=== PATIENT | male | born 1950 | race Caucasian/White ===

== ENCOUNTER 2021-06-26 17:49 | Inpatient (IN) | payer OTHER ==
[~2021-06-26] VITALS: Ht 180.3 cm; Wt 54.5 kg
[2021-06-26] MEDS ORDERED: REMERON15 M7 PO (19:49)
[2021-06-26] MEDS ORDERED: NEURONTIN300 MG PO (19:49)
[2021-06-26] MEDS ORDERED: HYDROCODONE-AC1 EA16 PO (19:50)
[2021-06-26] MEDS ORDERED: Vitamin D1000 UNI1 PO (19:50)
[2021-06-26] MEDS ORDERED: DOCU100 PO (19:50)
[2021-06-26] MEDS ORDERED: Hair, Skin & N1 EACH PO (19:50)
[2021-06-26] MEDS ORDERED: IBUP400 PO (19:50)
[2021-06-26 19:54] LABS: Hematocrit 43.6 % (37.0-53.0); Mean Corpuscular HGB 31.3 pg (26.0-34.0); Mean Corpuscular HGB Conc 34.4 g/dL (31.5-36.5); Mean Corpuscular Volume 91 fL (80-100); Platelet Count 522 K/mm3 (150-400); RDW Standard Deviation 43.6 fL (35.1-46.3)
[2021-06-26 20:06] LABS: Alanine Aminotransfer (ALT/SGP 39 U/L (12-78); Albumin, Blood 2.3 g/dL (3.4-5.0); Albumin/Globulin Ratio 0.6 (0.8-1.8); Alk Phos 129 U/L (50-136); Anion Gap 9 mmol/L (6-16); Aspartate Aminotrans (AST/SGOT 21 U/L (12-37); Bilirubin, Total 0.4 mg/dL (0.1-1.0); Blood Urea Nitrogen 31 mg/dL (8-24); Bun/Creatinine Ratio 54.5 (12.0-20.0); CO2, Blood 25 mmol/L (21-32); Calcium, Blood 9.1 mg/dL (8.5-10.1); Chloride, Blood 95 mmol/L (98-108); Creatinine, Blood 0.57 mg/dL (0.60-1.20); Globulin, Blood 3.9 g/dL (2.2-4.0); Glomerular Filtration Rate >60 (60-); Glucose, Blood 140 mg/dL (70-99); Potassium, Blood 4.6 mmol/L (3.5-5.5); Sodium, Blood 129 mmol/L (136-145); Total Protein, Blood 6.2 g/dL (6.4-8.2)
[2021-06-26 20:14] LABS: BAND PERCENT MAN 7 % (0-8); BASOPHILS PERCENT MAN 0 % (0-2); EOSINOPHILS PERCENT MAN 0 % (0-6); LYMPHOCYTES ABSOLUTE MAN 0.49 K/mm3 (0.84-5.20); LYMPHOCYTES PERCENT MAN 2 % (21-46); METAMYELOCYTE ABSOLUTE MAN 0.24 K/mm3 (0.00-0.00); METAMYELOCYTE PERCENT MAN 1 % (0-0); MONOCYTES ABSOLUTE MAN 2.73 K/mm3 (0.16-1.47); MONOCYTES PERCENT MAN 11 % (4-13); MYELOCYTE ABSOLUTE MAN 0.24 K/mm3 (0.00-0.00); MYELOCYTE PERCENT MAN 1 % (0-0); NEUTROPHILS ABSOLUTE MAN 21.16 K/mm3 (1.96-9.15); SEG NEUTROPHILS PERCENT MAN 78 % (41-73); TOTAL CELLS COUNTED 100
[2021-06-26 21:01] LABS: Source, Urine Clean Catch
[2021-06-26 21:05] LABS: Bilirubin, Urine Neg (Neg); Blood, Urine 3+ (Neg); Glucose Qualitative, Urine Neg (Neg); Ketones, Urine Neg (Neg); Leukocyte Esterase, Urine 3+ (Neg); Nitrite, Urine Neg (Neg); Protein, Urine Neg (Neg); Specific Gravity, Urine 1.015 (1.003-1.022); Urobilinogen, Urine 1+ (Normal)
[2021-06-26 21:16] LABS: Appearance, Urine Hazy (Clear); Bacteria Many /hpf; Color, Urine Yellow (P-Yellow); Mucus Light (0-Heavy); Red Blood Cells, Urine 0-2 /hpf (0-2); Squamous Epithelial Cells Rare /hpf (Few); Transitional Epithelial Cells Rare /hpf (0-Rare); White Blood Cells, Urine 50-100 /hpf (0-5)
[2021-06-27 05:32] LABS: BASOPHILS ABSOLUTE AUTO 0.06 K/mm3 (0.00-0.23); BASOPHILS PERCENT AUTO 0 % (0-2); EOSINOPHILS ABSOLUTE AUTO 0.06 K/mm3 (0.00-0.68); EOSINOPHILS PERCENT AUTO 0 % (0-6); Hematocrit 35.7 % (37.0-53.0); Hemoglobin 12.3 g/dL (13.5-17.5); IMMATURE GRAN ABSOLUTE AUTO 0.12 K/mm3 (0.00-0.10); IMMATURE GRAN PERCENT AUTO 1 % (0-1); LYMPHOCYTES ABSOLUTE AUTO 1.17 K/mm3 (0.84-5.20); LYMPHOCYTES PERCENT AUTO 8 % (21-46); MONOCYTES ABSOLUTE AUTO 1.55 K/mm3 (0.16-1.47); MONOCYTES PERCENT AUTO 11 % (4-13); Mean Corpuscular HGB 31.3 pg (26.0-34.0); Mean Corpuscular HGB Conc 34.5 g/dL (31.5-36.5); Mean Corpuscular Volume 91 fL (80-100); Mean Platelet Volume 10.3 fL (9.1-12.4); NEUTROPHILS ABSOLUTE AUTO 11.78 K/mm3 (1.96-9.15); NEUTROPHILS PERCENT AUTO 80 % (41-73); Platelet Count 441 K/mm3 (150-400); RDW Coefficient Variation 13.1 % (11.7-14.2); RDW Standard Deviation 44.2 fL (35.1-46.3); Red Blood Cell Count 3.93 M/mm3 (4.30-5.90); White Blood Cell Count 14.74 K/mm3 (4.00-11.30)
[2021-06-27 06:00] LABS: Alanine Aminotransfer (ALT/SGP 30 U/L (12-78); Albumin, Blood 1.9 g/dL (3.4-5.0); Albumin/Globulin Ratio 0.5 (0.8-1.8); Alk Phos 99 U/L (50-136); Anion Gap 6 mmol/L (6-16); Aspartate Aminotrans (AST/SGOT 18 U/L (12-37); Bilirubin, Total 0.3 mg/dL (0.1-1.0); Blood Urea Nitrogen 19 mg/dL (8-24); Bun/Creatinine Ratio 34.1 (12.0-20.0); CO2, Blood 26 mmol/L (21-32); Calcium, Blood 8.6 mg/dL (8.5-10.1); Chloride, Blood 99 mmol/L (98-108); Creatinine, Blood 0.56 mg/dL (0.60-1.20); Globulin, Blood 3.5 g/dL (2.2-4.0); Glomerular Filtration Rate >60 (60-); Glucose, Blood 85 mg/dL (70-99); Potassium, Blood 3.9 mmol/L (3.5-5.5); Sodium, Blood 131 mmol/L (136-145); Total Protein, Blood 5.4 g/dL (6.4-8.2)
--- NOTE | 2021-06-27 06:21 | NUR ---
SHIFT SUMMARY PATIENT ALERT AND ORIENTED X3. MEDICATED PER EMAR FOR PAIN. HAD NO COMPLAINTS OF SHORTNESS OF BREATH. NO ACUTE ISSUES NOTED OVERNIGHT. BED IN LOWEST POSITION WITH WHEELS LOCKED AND ALARM ON. CALL LIGHT WITHIN REACH. REPORT GIVEN TO ONCOMING RN.
--- NOTE | 2021-06-27 15:09 | NUR ---
VALDEMARM Initial Interview with Community Carton Inspector 1. Who did you speak with? Spoke with patient 2. What is the patient's prior level of functions? Patient lives independently with his brother and [id number]-xzk (RN at [employer]). Pt lives in home w/ his sister in law & brother. The property tow homes attached one with a three bedroom, the other a one bedroom with an attached garage. Reports YANIQUE is a RN at [employer]. Pt reports able to managing bathing/toileting on his own. Has walk in shower w/ shower chair. Reports someone is always home w/him; family assists with ADLs to include donning and doffing clothing. Patient performs some light meal prepping. Patient has a strong support system. 3. Does patient still drive? 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 Family provides transportation as needed. 4. POA/PCP/NOK: NOK: brothchristi Booth [phone] /PCP MD Ray Dixon 5. ANTICIPATED DISCHARGE NEEDS/GOALS: TBD/Home - DME: TBD -Home Health: TBD/no agency preference -Medication Management: Family sets up his medications. -Preferred Pharmacy-[facility] 6. List barriers to discharge: No barriers on this date 7. Discharge Plan: Home discharge/Follow up with PCP within 7 days (DOUG will coordinate) 8. PCP Follow up appointment: Will be scheduled within seven calendar days of discharge. Explained importance of scheduling and attendance. Confirmed cell phone number: [phone] 9. OTHER COMMENTS: Patient is a , but does not have service connected disability. Encourage patient to apply to expand VA benefits.
--- NOTE | 2021-06-27 20:09 | NUR ---
SUMMARY- PT A/O X3. HAVING A LOT OF PAIN IN L ARM AND CHEST THIS AM. MEDS ADJUSTED AND PAIN IS BETTER CONTROLLED AFTER STARTING OXYCODONE 10MG PRN. PT NAPPED ON/OFF T/O THE DAY, AWAKENS TO VERBAL STIM. VOIDING IN THE URINAL OCC MISSES AND SPILLS OVER CLOTHS AND FLOOR. DECREASED APPETITE, TOLERATED ALL OF FULL LIQ BREAKFAST BUT MIN LUNCH AND DINNER. MADE FINGER FOOD FOR UPCOMING MEALS SO HE CAN FEEDE HIMSELF, ONLY HAS USE OF ONE ARM. IVF X1 BAG STARTED THIS PM. PT HAD BEEN RESISTANT TO HELP WITH ADL'S, BUT AGREED TO BED BATH AND LINEN CHANGE. CLOTHS WERE SATURATED WITH URNINE AND BED SOILED. PICTURES OF BACKSIDE REVEAL BREAKDOWN, PRESENT SINCE BEFORE ADMIT. CLEANSED AND PLACED MEPILEX. RN AND MD IN CONTACT WITH DEBRA, DAUGHTER IN LAW THAT WORKS OUR FLOOR. AWARE OF THE CT RESULTS AND NEW TUMOR FOUND. PLANS FOR F/U PET SCAN AND 2/2 APT WITH ONC. PT ALSO AWARE TUMOR WAS FOUND.
--- NOTE | 2021-06-28 05:49 | NUR ---
Patient alert and oriented x3, forgetful. Ambulates with walker and one person assist. Complains of left arm pain, PRN pain medication given. Patient has been sleeping most of the night. Uses call light when needing to go to the restroom. No signs of distress. Snacks and drinks provided. No signs of distress. Bed in lowest position. call light within reach. bed alarm on.
[2021-06-28 07:51] LABS: Albumin, Blood 1.7 g/dL (3.4-5.0); Anion Gap 6 mmol/L (6-16); Blood Urea Nitrogen 17 mg/dL (8-24); Bun/Creatinine Ratio 33.3 (12.0-20.0); CO2, Blood 25 mmol/L (21-32); Calcium, Blood 8.4 mg/dL (8.5-10.1); Chloride, Blood 105 mmol/L (98-108); Creatinine, Blood 0.51 mg/dL (0.60-1.20); Glomerular Filtration Rate >60 (60-); Glucose, Blood 92 mg/dL (70-99); Phosphorus, Blood 2.8 mg/dL (2.5-4.9); Potassium, Blood 4.3 mmol/L (3.5-5.5); Sodium, Blood 136 mmol/L (136-145)
--- NOTE | 2021-06-28 08:18 | NUR ---
Patient has no preference for Home Health agency. [facility] Liaison contacted for referrral.
[2021-06-28] MEDS ORDERED: ACET500 PO (11:46)
[2021-06-28] MEDS ORDERED: XARELTO20 MG PO (11:47)
--- NOTE | 2021-06-28 12:50 | NUR ---
DISCHARGE NOTE PATIENT DISCHARGED AT 1240 VIA WHEELCHAIR WITH CAREGIVER DEBRA. THE PATIENT AND CAREGIVER VERBALIZED UNDERSTANDING OF DISCHARGE INSTRUCTIONS. HARD SCRIPT WITH PATIENT AT DISCHARGE. VSS. NOTHING FURTHER TO REPORT.
--- NOTE | 2021-06-28 15:38 | NUR ---
Received referral from nurse patient care assistant (Maranda Flynn) on 06/28/2021. Patient is to discharge with orders for home health and elected [facility]. Contacted patient's jvnbid-wv-vwa (Sahara Valencia) to further discuss the above. Patient's yaidvp-dh-jbh is agreeable to the above. Discussed homebound status definition with patient's rqzhql-co-jzp. Patient's vnnexz-gr-wgj verbalized understanding. Discussed what home health is vs what it is not (in home caregivers/housekeeping). Patient's tuiqpa-pi-yow verbalized understanding. Discussed the next steps in the process of an initial assessment to determine frequency of visits. Again patient's rjpfox-kc-roa verbalized understanding. Offered a chance for patient's ociaak-ab-srg to ask questions regarding the above of which there were none. Gathered all supporting documentation for referral (face sheet, face to face, med list, H&P, and most recent PT assessment) and sent to [facility] for review. No further interventions required. Marilee Theodore Referral Liaison
--- NOTE | 2021-06-29 10:02 | NUR ---
Per Dr. Jules discharge appropriate. Patient does not oppose discharge. Patient discharged home to residence. Patient lives with his sister Sahara. Patient discharged with home health orders. Patient's sister changed home health services to [facility]. Marileetania Theodore contacted by manager cash Talia. Date of discharge: 06/28/2021 Date of admission: 06/26/2021 Provisional diagnosis at time of admission: sepsis Final Diagnosis at time of discharge: stroke-sepsis Transportation provided by: Family/sister Sahara Location/Residence: [address] [place] [address] DME Ordered: None ordered/patient has a walker; sister requests hospital bed/chairlift-discussed with [facility] for evaluation of DME needs. Follow-ups needed: [facility] DOUG will contact patient to schedule hospital follow-up visit. Reinforced need to attend follow-up with option of telehealth appointment if unable to make an in-office appointment. Provider/PCP: Dr. 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 No barriers to discharge. Patient has a support network.
== END 2021-06-28 12:40 | disposition home health service (06) | DRG 872 ==
LOC: ER 17:49 → MEDS 22:23
PROVIDERS: Family Medicine; Physician Assistant; ADMIT Internal Medicine
DX: A41.51 Sepsis due to Escherichia coli [E. coli] (principal); E87.1 Hypo-osmolality and hyponatremia; N39.0 Urinary tract infection, site not specified; Z68.1 Body mass index [BMI] 19.9 or less, adult; C34.12 Malignant neoplasm of upper lobe, left bronchus or lung; C79.72 Secondary malignant neoplasm of left adrenal gland; R64 Cachexia; I82.C12 Acute embolism and thrombosis of left internal jugular vein; F17.210 Nicotine dependence, cigarettes, uncomplicated; F32.A Depression, unspecified; E86.0 Dehydration; Z79.899 Other long term (current) drug therapy
CPT/HCPCS: 36415; 70450; 71045; 71260; 74177; 80053; 80069; 81001; 83605; 85025; 87040; 87077; 87086; 87186; 92610; 96365; 97116; 97162; 97165; 97530; 99284-25; A9270; J0696; J1650; J2543; J7030; J7042; Q9967

== ENCOUNTER 2021-08-04 09:06 | Day surgery (SDC) | payer MEDICARE ==
[~2021-08-04] VITALS: Ht 180.3 cm; Wt 50.0 kg
[~2021-08-04 09:06] MED LIST: ACET500 PO; CENTRUM SILVER1 EAC2 PO; DECADRON4 M1 PO; DOCU100 PO; GABA400 PO; HYDROCODONE-AC1 EA16 PO; Hair, Skin & N1 EACH PO; IBUP400 PO; MIRT15 PO; NEURONTIN300 MG PO; OXYC10TA19 PO; REMERON15 M7 PO; SENNA LAXATIVE8.6 MG PO; THERA-D2000 UNIT PO; Vitamin D1000 UNI1 PO; XARELTO PO; XARELTO20 MG PO
--- NOTE | 2021-08-04 09:31 | NUR ---
INTO SDS VIA WC. History, Chart, Medications and Allergies reviewed before start of procedure. Patient confirms NPO status and agrees with scheduled surgery. Pre-Op teaching done. Pt verbalizes understanding. Patient States Post-Procedure ride home has been arranged.
--- NOTE | 2021-08-04 12:41 | NUR ---
Discharge instructions reviewed with patient. Patient verbalizes understanding. Copy given to patient to take home. Discharged via wheelchair to private car for ride home.
== END 2021-08-04 12:42 | disposition home or self-care (01) ==
LOC: ORSCMMR 09:06 → ORD 10:30 → ORSCMMR 10:30
PROVIDERS: Surgery
PROC: 0JH60WZ Insertion of Totally Implantable Vascular Access Device into Chest Subcutaneous Tissue and Fascia, Open Approach (ICD-10-PCS; principal; 2021-08-04 10:30)
DX: C34.90 Malignant neoplasm of unspecified part of unspecified bronchus or lung (principal); F17.210 Nicotine dependence, cigarettes, uncomplicated; Z79.01 Long term (current) use of anticoagulants; Z79.899 Other long term (current) drug therapy
CPT/HCPCS: 77001; A9270; C1788; J0690; J1642; J2250; J2704; J3010; J7120

== ENCOUNTER 2021-10-25 15:46 | Inpatient (IN) | payer OTHER ==
[~2021-10-25] VITALS: Ht 172.7 cm; Wt 53.8 kg
[2021-10-25 16:33] LABS: Hematocrit 31.5 % (37.0-53.0); Hemoglobin 11.2 g/dL (13.5-17.5); Mean Corpuscular HGB 32.9 pg (26.0-34.0); Mean Corpuscular HGB Conc 35.6 g/dL (31.5-36.5); Mean Corpuscular Volume 93 fL (80-100); Mean Platelet Volume 10.4 fL (9.1-12.4); Platelet Count 159 K/mm3 (150-400); RDW Coefficient Variation 18.8 % (11.7-14.2); RDW Standard Deviation 63.1 fL (35.1-46.3); White Blood Cell Count 1.88 K/mm3 (4.00-11.30)
[2021-10-25 16:54] LABS: BAND PERCENT MAN 2 % (0-8); BASOPHILS PERCENT MAN 0 % (0-2); EOSINOPHILS PERCENT MAN 0 % (0-6); LYMPHOCYTES ABSOLUTE MAN 0.26 K/mm3 (0.84-5.20); LYMPHOCYTES PERCENT MAN 14 % (21-46); MONOCYTES PERCENT MAN 0 % (4-13); NEUTROPHILS ABSOLUTE MAN 1.61 K/mm3 (1.96-9.15); SEG NEUTROPHILS PERCENT MAN 84 % (41-73); TOTAL CELLS COUNTED 100
[2021-10-25 16:56] LABS: Source, Urine Voided
[2021-10-25 17:04] LABS: Appearance, Urine Clear (Clear); Blood, Urine 5+ (Neg); Color, Urine Amber (P-Yellow); Glucose Qualitative, Urine Neg (Neg); Ketones, Urine 1+ (Neg); Leukocyte Esterase, Urine 3+ (Neg); Nitrite, Urine Pos (Neg); Protein, Urine 2+ (Neg); Urobilinogen, Urine 3+ (Normal)
[2021-10-25 17:05] LABS: Albumin/Globulin Ratio 0.5 (0.8-1.8); Bilirubin, Total 0.5 mg/dL (0.1-1.0); Bun/Creatinine Ratio 32.4 (12.0-20.0); Creatinine, Blood 0.46 mg/dL (0.60-1.20); Potassium, Blood 4.6 mmol/L (3.5-5.5)
[2021-10-25 17:18] LABS: Bilirubin, Urine 1+ (Neg)
[2021-10-25 17:20] LABS: Bacteria Mod /hpf; Renal Epithelial Rare /hpf (0-Rare); Squamous Epithelial Cells Few /hpf (Few); White Blood Cells, Urine 50-100 /hpf (0-5)
[2021-10-25] MEDS ORDERED: FENTANYL TOP (20:37)
[2021-10-25] MEDS ORDERED: Cipro500 MG PO (20:46)
--- NOTE | 2021-10-25 23:08 | NUR ---
PT WEARING FENTANYL PATCH 50MCG UPON ADMIT, DATED TO BE CHANGED YESTERDAY. T/O RECIEVED FROM DR MONTELONGO AND OLD PATCH REMOVED; WASTE WITNESSED BY Daniele BARNHART RN. NEW PATCH PLACED ONTO L CHEST WALL AND DATED.
[2021-10-26 05:12] LABS: Hematocrit 29.1 % (37.0-53.0); Mean Corpuscular HGB Conc 34.4 g/dL (31.5-36.5); Mean Corpuscular Volume 96 fL (80-100); Mean Platelet Volume 10.7 fL (9.1-12.4); Platelet Count 148 K/mm3 (150-400); RDW Coefficient Variation 18.9 % (11.7-14.2); RDW Standard Deviation 65.7 fL (35.1-46.3); Red Blood Cell Count 3.03 M/mm3 (4.30-5.90)
[2021-10-26 05:36] LABS: White Blood Cell Count 0.97 K/mm3 (4.00-11.30)
[2021-10-26 05:44] LABS: BAND PERCENT MAN 25 % (0-8); BASOPHILS PERCENT MAN 0 % (0-2); EOSINOPHILS PERCENT MAN 0 % (0-6); LYMPHOCYTES ABSOLUTE MAN 0.22 K/mm3 (0.84-5.20); LYMPHOCYTES PERCENT MAN 23 % (21-46); MONOCYTES ABSOLUTE MAN 0.03 K/mm3 (0.16-1.47); MONOCYTES PERCENT MAN 4 % (4-13); SEG NEUTROPHILS PERCENT MAN 48 % (41-73); TOTAL CELLS COUNTED 52
[2021-10-26 05:46] LABS: Bun/Creatinine Ratio 28.5 (12.0-20.0); Calcium, Blood 8.7 mg/dL (8.5-10.1); Creatinine, Blood 0.46 mg/dL (0.60-1.20); Potassium, Blood 4.7 mmol/L (3.5-5.5)
--- NOTE | 2021-10-26 06:24 | NUR ---
PT IS ALERT, VERY WEAK, HX OF LUNG CANCER WITH CHEMO TREATMENT. LAST TREAT MENT BEFORE ADMIT.PT IS IN NEUTROPENIC PRECAUTIONS; MOST RECENT WBC THIS AM 0.97. TELE MONITOR. R ARM IN SLING DUE TO SCAPULA FX PER ER REPORT.
--- NOTE | 2021-10-26 16:06 | NUR ---
SHIFT SUMMARY PATIENT IS ALERT AND ORIENTED. PATIENT HAS BEEN PLEASENT AND COOPERATIVE WITH CARE. PATIENT HAS BEEN IN NEUTROPENIC PRECAUTIONS ALL SHIFT, CRITICAL WBC 0.97. PATIENT HAS BEEN UP IN CHAIR THIS AFTERNOON AFTER WORKING WITH PT/OT. ONCOLOGY HAS CALLED BACK ON CONSULT THAT WAS PUT IN OVERNIGHT, WILL SEE PATIENT ON NEXT APPOINTMENT. PATIENT HAS BEEN GETTING CONTINUOUS FLUIDS AND ABX THIS SHIFT. PATIENT HAS HAD NO COMPLAINTS OF PAIN, SOB, VOMITTING, OR NAUSEA THIS SHIFT. BED IN LOCKED AND LOWEST POSITION. CALL LIGHT IN PLACE. WILL MONITOR UNTIL SHIFT CHANGE.
[2021-10-27 01:57] LABS: Hematocrit 29.3 % (37.0-53.0); Hemoglobin 10.2 g/dL (13.5-17.5); Mean Corpuscular HGB 32.9 pg (26.0-34.0); Mean Corpuscular HGB Conc 34.8 g/dL (31.5-36.5); Mean Corpuscular Volume 95 fL (80-100); Mean Platelet Volume 10.2 fL (9.1-12.4); Platelet Count 149 K/mm3 (150-400); RDW Coefficient Variation 18.8 % (11.7-14.2); RDW Standard Deviation 65.1 fL (35.1-46.3); White Blood Cell Count 1.39 K/mm3 (4.00-11.30)
[2021-10-27 02:17] LABS: Alanine Aminotransfer (ALT/SGP 20 U/L (12-78); Albumin, Blood 1.7 g/dL (3.4-5.0); Albumin/Globulin Ratio 0.5 (0.8-1.8); Alk Phos 98 U/L (50-136); Anion Gap 7 mmol/L (6-16); Aspartate Aminotrans (AST/SGOT 11 U/L (12-37); Bilirubin, Total 0.6 mg/dL (0.1-1.0); Blood Urea Nitrogen 13 mg/dL (8-24); Bun/Creatinine Ratio 29.4 (12.0-20.0); CO2, Blood 28 mmol/L (21-32); Calcium, Blood 8.4 mg/dL (8.5-10.1); Chloride, Blood 97 mmol/L (98-108); Creatinine, Blood 0.44 mg/dL (0.60-1.20); Globulin, Blood 3.7 g/dL (2.2-4.0); Glomerular Filtration Rate 113 (60-); Glucose, Blood 112 mg/dL (70-99); Potassium, Blood 4.2 mmol/L (3.5-5.5); Sodium, Blood 132 mmol/L (136-145); Total Protein, Blood 5.4 g/dL (6.4-8.2); Vancomycin, Trough 5.2 ug/mL (5.0-10.0)
[2021-10-27 02:26] LABS: BAND PERCENT MAN 10 % (0-8); BASOPHILS PERCENT MAN 0 % (0-2); EOSINOPHILS ABSOLUTE MAN 0.02 K/mm3 (0.00-0.68); EOSINOPHILS PERCENT MAN 2 % (0-6); LYMPHOCYTES ABSOLUTE MAN 0.23 K/mm3 (0.84-5.20); LYMPHOCYTES PERCENT MAN 17 % (21-46); METAMYELOCYTE ABSOLUTE MAN 0.01 K/mm3 (0.00-0.00); METAMYELOCYTE PERCENT MAN 1 % (0-0); MONOCYTES ABSOLUTE MAN 0.05 K/mm3 (0.16-1.47); MONOCYTES PERCENT MAN 4 % (4-13); MYELOCYTE ABSOLUTE MAN 0.01 K/mm3 (0.00-0.00); MYELOCYTE PERCENT MAN 1 % (0-0); NEUTROPHILS ABSOLUTE MAN 1.04 K/mm3 (1.96-9.15); SEG NEUTROPHILS PERCENT MAN 65 % (41-73); TOTAL CELLS COUNTED 100
--- NOTE | 2021-10-27 06:12 | NUR ---
PT IS A/O AND VERY WEAK AND TIRED, SUNDAY POWERGLIDE PUT IN BY ICU DISPENSING OPERATOR AFTER IV ACCESS WAS LOST. PT HAD INCONTINENT EPISODE THIS SHIFT. TELE MONITOR IN SR.
--- NOTE | 2021-10-27 17:40 | NUR ---
SHIFT SUMMARY PATIENT IS ALERT AND ORIENTED X3. PATIENT HAS BEEN RESTING MOST OF SHIFT. PATIENT HAS HAD NO ACUTE EVENTS THIS SHIFT.VITAL SIGNS REVIEWED. POWERGLIDE FLUSHES WELL BUT NO DRAW. PATIENT HAS BEEN PLEASENT AND COOPERATIVE WITH SHIFT. PATIENT HAS BEEN TURNED FREQUENTLY AND FLOATED. BED IN LOCKED AND LOWEST POSITION. CALL LIGHT IN PLACE. PATIENT HAS BEEN CONTINENT ALL SHIFT. WILL MONITOR UNTIL SHIFT CHANGE.
[2021-10-28 02:07] LABS: Hematocrit 27.3 % (37.0-53.0); Hemoglobin 9.6 g/dL (13.5-17.5); Mean Corpuscular HGB 32.8 pg (26.0-34.0); Mean Corpuscular HGB Conc 35.2 g/dL (31.5-36.5); Mean Corpuscular Volume 93 fL (80-100); Mean Platelet Volume 10.2 fL (9.1-12.4); Platelet Count 140 K/mm3 (150-400); RDW Coefficient Variation 18.4 % (11.7-14.2); RDW Standard Deviation 62.8 fL (35.1-46.3); Red Blood Cell Count 2.93 M/mm3 (4.30-5.90); White Blood Cell Count 1.69 K/mm3 (4.00-11.30)
[2021-10-28 02:23] LABS: Alanine Aminotransfer (ALT/SGP 21 U/L (12-78); Albumin, Blood 1.6 g/dL (3.4-5.0); Albumin/Globulin Ratio 0.5 (0.8-1.8); Alk Phos 91 U/L (50-136); Anion Gap 10 mmol/L (6-16); Aspartate Aminotrans (AST/SGOT 15 U/L (12-37); Bilirubin, Total 0.7 mg/dL (0.1-1.0); Blood Urea Nitrogen 12 mg/dL (8-24); Bun/Creatinine Ratio 31.1 (12.0-20.0); CO2, Blood 24 mmol/L (21-32); Calcium, Blood 8.1 mg/dL (8.5-10.1); Chloride, Blood 98 mmol/L (98-108); Creatinine, Blood 0.39 mg/dL (0.60-1.20); Globulin, Blood 3.5 g/dL (2.2-4.0); Glomerular Filtration Rate 117 (60-); Glucose, Blood 95 mg/dL (70-99); Magnesium, Blood 1.9 mg/dL (1.6-2.4); Phosphorus, Blood 2.9 mg/dL (2.5-4.9); Potassium, Blood 3.6 mmol/L (3.5-5.5); Sodium, Blood 132 mmol/L (136-145); Total Protein, Blood 5.1 g/dL (6.4-8.2); Vancomycin, Trough 10.8 ug/mL (5.0-10.0)
[2021-10-28 02:54] LABS: BAND PERCENT MAN 14 % (0-8); BASOPHILS PERCENT MAN 0 % (0-2); EOSINOPHILS PERCENT MAN 0 % (0-6); LYMPHOCYTES ABSOLUTE MAN 0.37 K/mm3 (0.84-5.20); LYMPHOCYTES PERCENT MAN 22 % (21-46); MONOCYTES ABSOLUTE MAN 0.16 K/mm3 (0.16-1.47); MONOCYTES PERCENT MAN 10 % (4-13); NEUTROPHILS ABSOLUTE MAN 1.14 K/mm3 (1.96-9.15); SEG NEUTROPHILS PERCENT MAN 54 % (41-73); TOTAL CELLS COUNTED 50
--- NOTE | 2021-10-28 04:37 | NUR ---
SHIFT SUMMARY PT AOX3, FORGETFUL AT TIMES. PT SLEPT GOOD OVERNIGHT. PT REPORT FEELING REALLY TIRED DENIES PAIN. VSS. POWERGLIDE ON SUNDAY, PATENT, INFUSING NS KVO AND ABX GIVEN. LABS DRAWN ON SUNDAY POWRGLIDE. PT REPOSITIONED Q2. ATTENDS IN PLACE, INCONTINENT AT NIGHT. PT HAD 1 SMALL FORMED BM. VSS. PT ON 4L NC 02 SAT BETWEEN 90-95%. BED ALARM ON, LOW POSITION. CALL LIGHT WITHIN REACH. WILL PROVIDE REPORT TO ONCOMING NURSE.
--- NOTE | 2021-10-28 08:49 | NUR ---
Spoke with RN Alicia Keys and Primary RN Lacey. Discussed case and concerns. Pt's LALIT Phoenix currently at bedside and may benefit from Palliative Care visit 70 year old male admitted to the hospital for Sepsis. Pt's medical history and comorbidities include: Stage IV Metastatic Lung Cancer, Basal Cell Carcinoma S/P Excision, Protein Calorie Malnutrition, Depression, and Mediport Placement. Pt resting in bed upon arrival. Pt denies dyspnea and pain at this time. Pt does report mild anxiety. LALIT Phoenix at bedside. Offered therapeutic listening as Lizett reports Pt's son and herself are Pt's primary caregivers. Lizett is an RN that works here at the hospital. She reports Pt requires assistance with transfers, Standbye assist using a cane with ambulation, experiences incontinence, needs assistance with bathing and dressing. Pt's PO intake has decreased including his fluid intake. Lizett starts a conversation inquiring about considering focusing on quality of life. Engaged in therapeutic conversation regarding hospice. Gentle education on hospice philosophy. Offered therapeutic listening and answered questions. Gentle discussion started regarding code status. Gentle education on life sustaining treatments including risk factors and implications of CPR. Lziett presents Pt's advanced directive and states this copy has not been signed but his attourney has the signed copy but was unable to reach him yesterday due to office being closded early. Continued therapeutic listening and answered questions. Pt reports plan to discuss further with family regarding conversations and goals of care. Pt and Lizett express appreciation and reports no other concerns at this time. PPS 40% KPS 30% ADLs 5/6 Pt appears appropriate for hospice and will discuss further with family regarding goals of care. Pt high risk for readmission. Palliative Care will remain available for supportive and therapeutic visits.
--- NOTE | 2021-10-28 17:46 | NUR ---
SHIFT SUMMARY PT AXO, PLEASANT AND COOPERATIVE WITH CARE THOUGH WITHDRAWN. HYPOTENSION NOTED WITH AM VS AT 0749 THOUGH THIS NURSE LOOKED AT PT BP AND THIS APPEARED NORMAL FOR THIS PATIENT. VSS THIS AFTERNOON. SPEECH THERAPY EVALUATED, SEE NOTES. UP TO CHAIR AT THIS TIME FOR DINNER. PT DENIES PAIN, SOB AND NV. WITH AM MED ADMINISTRATION, PT ASPIRATED ON FIRST SIP OF WATER, PT INSISTED ON CONTINUING TO DRINK. STATES HE DOES NOT LIKE TAKING PILLS IN APPLESAUCE. BED IN LOW POSITION, CALL LIGHT WITHIN REACH. PALLIATIVE CARE IN TO VISIT WITH PATIENT, SEE NOTE. PT'S SISTER IN LAW, LEIA IS REQUESTING DR HAVE A GENTLE BUT REALISTIC CONVERSATION WITH PATIENT ABOUT PROGNOSIS OF HIS CANCER AT THIS POINT. DISCUSSION ABOUT HOSPICE STARTED.
[2021-10-29 01:53] LABS: Hematocrit 25.9 % (37.0-53.0); Hemoglobin 9.3 g/dL (13.5-17.5); Mean Corpuscular HGB Conc 35.9 g/dL (31.5-36.5); Mean Corpuscular Volume 92 fL (80-100); Platelet Count 145 K/mm3 (150-400); RDW Coefficient Variation 18.5 % (11.7-14.2); RDW Standard Deviation 61.1 fL (35.1-46.3); Red Blood Cell Count 2.82 M/mm3 (4.30-5.90); White Blood Cell Count 2.59 K/mm3 (4.00-11.30)
[2021-10-29 02:05] LABS: Alanine Aminotransfer (ALT/SGP 25 U/L (12-78); Albumin, Blood 1.5 g/dL (3.4-5.0); Albumin/Globulin Ratio 0.4 (0.8-1.8); Alk Phos 88 U/L (50-136); Anion Gap 7 mmol/L (6-16); Aspartate Aminotrans (AST/SGOT 39 U/L (12-37); Bilirubin, Total 0.6 mg/dL (0.1-1.0); Blood Urea Nitrogen 16 mg/dL (8-24); CO2, Blood 27 mmol/L (21-32); Calcium, Blood 8.5 mg/dL (8.5-10.1); Chloride, Blood 99 mmol/L (98-108); Creatinine, Blood 0.39 mg/dL (0.60-1.20); Globulin, Blood 3.5 g/dL (2.2-4.0); Glomerular Filtration Rate 117 (60-); Glucose, Blood 115 mg/dL (70-99); Potassium, Blood 4.7 mmol/L (3.5-5.5); Sodium, Blood 133 mmol/L (136-145)
[2021-10-29 02:16] LABS: BAND PERCENT MAN 34 % (0-8); BASOPHILS PERCENT MAN 0 % (0-2); EOSINOPHILS PERCENT MAN 0 % (0-6); LYMPHOCYTES % ATYPICAL MANUAL 1 % (0-0); LYMPHOCYTES ABSOLUTE MAN 0.41 K/mm3 (0.84-5.20); LYMPHOCYTES PERCENT MAN 15 % (21-46); MONOCYTES ABSOLUTE MAN 0.28 K/mm3 (0.16-1.47); MONOCYTES PERCENT MAN 11 % (4-13); NEUTROPHILS ABSOLUTE MAN 1.89 K/mm3 (1.96-9.15); SEG NEUTROPHILS PERCENT MAN 39 % (41-73); TOTAL CELLS COUNTED 100
--- NOTE | 2021-10-29 04:56 | NUR ---
SHIFT SUMMARY: PT HAS BEEN CALM AND COOPERATIVE WITH ALL CARE. HE DID HAVE A MOMENT WHERE HE DECIDED NOT TO WEAR THE NASAL CANULA. HE WAS EDUCATED ON THE IMPORTANCE OF THE SUPPLEMENTAL O2 AND WORE THE 4L THE REST OF THE SHIFT. PER TELE MONITOR: SR/89. HE DID HAVE A BM AND THE MEPILEX TO HIS COCCYX IS CDI. A NEW FENTANYL PATCH IS IN PLACE IN HIS LEFT UPPER CHEST. THE PT HAS SOME QUESTIONS AND POSSIBLE CHANGES TO HIS CODE STATUS THAT NEED TO BE ADDRESSED. THE CALL LIGHT IS WITHIN REACH AND WE'LL CONTINUE TO MONITOR.
--- NOTE | 2021-10-29 08:27 | NUR ---
Pt resting in bed and is A&OX4. Pt reports his memory being a little fuzzy and experiencing some confusion at times. He reports thinking he was in [facility] earlier this AM. Pt reports his wishes are for DNR. Continued therapeutic listening and brief discussion regarding hospice as an option. Pt's LALIT Phoenix at bedside. Pt and family express appreciation and report no other concerns at this time. Provided brochure to Lizett for [facility] for Pt to consider as well. Provided POLST form for Pt to consider completing. Spoke with Dr Cazares and discussed Pt's wishes for DNR. Placed order in [facility] for DNR. Palliative Care will remain available.
--- NOTE | 2021-10-29 17:45 | NUR ---
SHIFT SUMMARY PT AXO, COOPERATIVE WITH CARE THOUGH WITHDRAWN. NO ACUTE CHANGES THIS SHIFT. PT DENIES PAIN, SOB AND N/V. ON 2L VIA NC 96%. VSS. INCONTINENT, CHANGED AND TURNED Q2 QND PRN. MEPIEX TO COCCYX, FOR PREVENTION. POWERGLIDE PATENT AND RUNNING TKO. POOR APPETITE. BED IN LOW POSITION, CALL LIGHT WITHIN REACH. DNR BAND IN PLACE
[2021-10-30 04:57] LABS: Hematocrit 26.6 % (37.0-53.0); Hemoglobin 9.4 g/dL (13.5-17.5); Mean Corpuscular HGB 33.2 pg (26.0-34.0); Mean Corpuscular HGB Conc 35.3 g/dL (31.5-36.5); Mean Corpuscular Volume 94 fL (80-100); Mean Platelet Volume 10.4 fL (9.1-12.4); Platelet Count 142 K/mm3 (150-400); RDW Coefficient Variation 18.6 % (11.7-14.2); RDW Standard Deviation 63.4 fL (35.1-46.3); Red Blood Cell Count 2.83 M/mm3 (4.30-5.90); White Blood Cell Count 3.02 K/mm3 (4.00-11.30)
[2021-10-30 05:06] LABS: Bun/Creatinine Ratio 26.1 (12.0-20.0); Calcium, Blood 8.3 mg/dL (8.5-10.1); Creatinine, Blood 0.42 mg/dL (0.60-1.20); Potassium, Blood 3.7 mmol/L (3.5-5.5)
[2021-10-30 05:44] LABS: BAND PERCENT MAN 10 % (0-8); BASOPHILS PERCENT MAN 0 % (0-2); EOSINOPHILS ABSOLUTE MAN 0.03 K/mm3 (0.00-0.68); EOSINOPHILS PERCENT MAN 1 % (0-6); LYMPHOCYTES % ATYPICAL MANUAL 2 % (0-0); LYMPHOCYTES ABSOLUTE MAN 0.51 K/mm3 (0.84-5.20); LYMPHOCYTES PERCENT MAN 15 % (21-46); METAMYELOCYTE ABSOLUTE MAN 0.06 K/mm3 (0.00-0.00); METAMYELOCYTE PERCENT MAN 2 % (0-0); MONOCYTES ABSOLUTE MAN 0.42 K/mm3 (0.16-1.47); MONOCYTES PERCENT MAN 14 % (4-13); MYELOCYTE ABSOLUTE MAN 0.06 K/mm3 (0.00-0.00); MYELOCYTE PERCENT MAN 2 % (0-0); NEUTROPHILS ABSOLUTE MAN 1.93 K/mm3 (1.96-9.15); SEG NEUTROPHILS PERCENT MAN 54 % (41-73); TOTAL CELLS COUNTED 100
--- NOTE | 2021-10-30 06:14 | NUR ---
SHIFT SUMMARY: PT IS A/OX4. HE REMAINS ON 4L OF O2 THIS NOC SHIFT. HE IS INCONTINENT MOST OFTEN AND THE COCCYX MEPILEX NEEDED CHANGING. HE'S ABLE TO TAKE HIS MEDS WITH WATER. NO C/O PAIN. THE BED IS IN THE LOWEST POSITION, CALL LIGHT IS WITHIN REACH AND WE'LL CONTINUE TO MONITOR.
[2021-10-31 02:27] LABS: Hematocrit 32.5 % (37.0-53.0); Mean Corpuscular HGB Conc 33.8 g/dL (31.5-36.5); Mean Corpuscular Volume 98 fL (80-100); Platelet Count 166 K/mm3 (150-400); RDW Coefficient Variation 18.9 % (11.7-14.2); RDW Standard Deviation 66.5 fL (35.1-46.3); Red Blood Cell Count 3.33 M/mm3 (4.30-5.90); White Blood Cell Count 4.46 K/mm3 (4.00-11.30)
[2021-10-31 02:51] LABS: Albumin, Blood 1.7 g/dL (3.4-5.0); Anion Gap 7 mmol/L (6-16); Blood Urea Nitrogen 8 mg/dL (8-24); Bun/Creatinine Ratio 21.7 (12.0-20.0); CO2, Blood 29 mmol/L (21-32); Calcium, Blood 8.7 mg/dL (8.5-10.1); Chloride, Blood 98 mmol/L (98-108); Creatinine, Blood 0.37 mg/dL (0.60-1.20); Glomerular Filtration Rate 119 (60-); Glucose, Blood 92 mg/dL (70-99); Magnesium, Blood 1.5 mg/dL (1.6-2.4); Phosphorus, Blood 3.2 mg/dL (2.5-4.9); Potassium, Blood 3.9 mmol/L (3.5-5.5); Sodium, Blood 134 mmol/L (136-145); Vancomycin, Trough 14.2 ug/mL (5.0-10.0)
--- NOTE | 2021-10-31 05:01 | NUR ---
PT IS A/OX4. HE IS ON 4L OF O2. HE HAS BEEN WORKING ON DRINKING THE ORAL CONTRAST OVER THE SLOTTED TIME. HE IS SCHEDULED FOR AN A/P CT THIS A.M. HE HAS A NEW COCCYX MEPILEX DRESSING IN PLACE THAT IS CDI. THE PATIENT HAS BEEN VERY PLEASANT AND COOPERATIVE WITH ALL CARE. HIS CALL LIGHT IS WITHIN REACH AND WE'LL CONTINUE TO MONITOR.
--- NOTE | 2021-10-31 18:00 | NUR ---
[facility]ician met with family and reviewed changes to his metastatic disease. Spent therputic time speaking with family and patient. He is wanting to go home as soon as [facility] with [facility]. Family reviewed all agencies and choose [facility] hospice. Updated staff plan is home tomorrow or . Therpautic calls to family for support.
--- NOTE | 2021-11-01 04:52 | NUR ---
SEWER PIPE OFFBEARER SUMMARY ADMITTED FOR SEPSIS. PT IS A DNR. HE IS TO BE DISCHARGED HOME ON HOSPICE TODAY. PT REPORTS GOOD PAIN MANAGEMENT WITH FENTANYL PATCHES. PT NPO SECONDARY TO ESOPHAGEAL FISTULA. HE IS INCONTINENT OF BOWEL AND BLADDER. RECEIVED ONE DOSE OF IV VANCO LAST NIGHT. PT APPEARS TO BE MORE ANGRY IN MOOD.
[2021-11-01] MEDS ORDERED: Ativan1 MG PO (12:09)
[2021-11-01] MEDS ORDERED: ACET325 PO (12:09)
[2021-11-01] MEDS ORDERED: MORP20L PO (12:10)
[2021-11-01] MEDS ORDERED: TRANSDERM-SCOP1 EA11 TD (12:10)
--- NOTE | 2021-11-01 15:55 | NUR ---
PT DISCHARGED, INSTRUCTIONS TO CAREGIVER DEBRA- MEDS FAXED TO PHARMACY. PT TRANSPORTED WITH STRETCHER AND OXYGEN TO HOME FOR HOSPICE. MEDICATED OXYCOCONE BEFIRE DISCHARGE. SENT HOME WITH BELONGINGS
== END 2021-11-01 13:38 | disposition hospice, home (50) | DRG 871 ==
LOC: ER 15:46 → MEDS 18:12
PROVIDERS: Emergency Medicine; Family Medicine; Hospitalist; Internal Medicine; ADMIT Internal Medicine
DX: A41.9 Sepsis, unspecified organism (principal); J69.0 Pneumonitis due to inhalation of food and vomit; J86.0 Pyothorax with fistula; J96.01 Acute respiratory failure with hypoxia; J18.9 Pneumonia, unspecified organism; D61.818 Other pancytopenia; C34.12 Malignant neoplasm of upper lobe, left bronchus or lung; E46 Unspecified protein-calorie malnutrition; E87.1 Hypo-osmolality and hyponatremia; N39.0 Urinary tract infection, site not specified; R64 Cachexia; R65.20 Severe sepsis without septic shock; D72.819 Decreased white blood cell count, unspecified; F32.A Depression, unspecified; C44.91 Basal cell carcinoma of skin, unspecified; F17.210 Nicotine dependence, cigarettes, uncomplicated; G47.00 Insomnia, unspecified; X58.XXXA Exposure to other specified factors, initial encounter; Z92.21 Personal history of antineoplastic chemotherapy; Z98.890 Other specified postprocedural states; S42.92XD Fracture of left shoulder girdle, part unspecified, subsequent encounter for fracture with routine healing; Z95.9 Presence of cardiac and vascular implant and graft, unspecified; Z79.899 Other long term (current) drug therapy; Z79.891 Long term (current) use of opiate analgesic; Z79.01 Long term (current) use of anticoagulants; Z79.52 Long term (current) use of systemic steroids; Z79.2 Long term (current) use of antibiotics; Z68.24 Body mass index [BMI] 24.0-24.9, adult; Z51.5 Encounter for palliative care; Y95 Nosocomial condition
CPT/HCPCS: 36415; 71045; 71046; 71260; 74177; 80048; 80053; 80069; 80202; 81001; 83605; 83735; 83880; 84100; 84145; 84484; 85025; 85027; 85379; 87040; 87086; 92526; 92610; 93005; 93010; 94760; 96365; 96366; 96368; 97110; 97112; 97162; 97166; 97530; 97535; 99285-25; A9270; C1751; J0456; J1447; J2543; J3370; J3475; J7030; J7040; J7050; J7060; Q9967